=== PATIENT | male | born 1950 | race Caucasian/White ===

== ENCOUNTER 2017-07-30 22:52 | Emergency (ER) | payer OTHER ==
[~2017-07-30] VITALS: Ht 182.9 cm; Wt 93.0 kg
[~2017-07-30 22:52] MED LIST: CIP250 PO; ROX5 PO; ULT50 PO
[2017-07-30 23:09] VITALS: Ht 182.9 cm; Wt 93.0 kg
[2017-07-31 00:26] LABS: BASOPHIL % 1.6 % (0-2); PLATELET COUNT 265 x10^3mcL (130-400)
[2017-07-31 00:31] LABS: UA SPECIFIC GRAVITY <=1.005 (1.005-1.035); microscopic required? YES; urine erythrocyte 1+ (NEGATIVE)
[2017-07-31 00:38] LABS: CALCIUM 8.6 mg/dL (8.5-10.1); CARBON DIOXIDE 25.6 mmol/L (21-32); CHLORIDE SERUM 104 mmol/L (98-107); GFR1 > 60 mL/min; GLUCOSE SERUM 103 mg/dL (74-106); POTASSIUM SERUM 3.9 mmol/L (3.5-5.1); SODIUM SERUM 137 mmol/L (136-145)
[2017-07-31 00:39] LABS: RED CELL DISTRIBUTION WIDTH 14.6 % (11.5-14.5)
[2017-07-31 00:43] LABS: ALBUMIN 3.3 g/dL (3.4-5.0); ALKALINE PHOSPHATASE 79 U/L (46-116); ALT/SGPT 14 U/L (16-63); AST/SGOT 14 U/L (15-37); BILIRUBIN TOTAL 0.3 mg/dL (0.20-1.00); TOTAL PROTEIN, SERUM 6.7 g/dL (6.4-8.2)
[2017-07-31 04:02] VITALS: BP 121/77
== END 2017-07-31 04:02 | disposition home or self-care (01) ==
LOC: ED 22:52
PROVIDERS: Emergency Medicine
DX: K59.00 Constipation, unspecified (principal); Z88.0 Allergy status to penicillin
CPT/HCPCS: 36415; Q0092

== ENCOUNTER 2018-09-16 22:11 | Emergency (ER) | payer OTHER ==
[~2018-09-16] VITALS: Ht 182.9 cm; Wt 95.7 kg
[2018-09-16 22:18] VITALS: Ht 182.9 cm; Wt 95.7 kg
[2018-09-16 23:00] LABS: BASOPHIL % 1.6 % (0-2); PLATELET COUNT 227 x10^3mcL (130-400); RED CELL DISTRIBUTION WIDTH 13.8 % (11.5-14.5)
[2018-09-16 23:12] LABS: CARBON DIOXIDE 29.3 mmol/L (21-32); CREATININE SERUM 1.3 mg/dL (0.7-1.3); POTASSIUM SERUM 4.1 mmol/L (3.5-5.1)
[2018-09-16 23:16] LABS: BILIRUBIN TOTAL 0.3 mg/dL (0.20-1.00)
[2018-09-16 23:17] LABS: ALBUMIN 3.2 g/dL (3.4-5.0)
[2018-09-17 01:11] VITALS: BP 117/82
== END 2018-09-17 01:11 | disposition home or self-care (01) ==
LOC: ED 22:11
PROVIDERS: Emergency Medicine
DX: C64.1 Malignant neoplasm of right kidney, except renal pelvis (principal); Z88.0 Allergy status to penicillin
CPT/HCPCS: 36415

== ENCOUNTER 2018-10-31 23:59 | Emergency (ER) | payer OTHER ==
[~2018-10-31] VITALS: Ht 182.9 cm; Wt 95.3 kg
[2018-11-01 00:56] LABS: BASOPHIL % 0.6 % (0-2); PLATELET COUNT 226 x10^3mcL (130-400); RED CELL DISTRIBUTION WIDTH 14.8 % (11.5-14.5)
[2018-11-01 01:01] LABS: CALCIUM 8.2 mg/dL (8.5-10.1); CARBON DIOXIDE 23.2 mmol/L (21-32); CHLORIDE SERUM 107 mmol/L (98-107); CREATININE SERUM 1.2 mg/dL (0.7-1.3); GFR1 > 60 mL/min; GLUCOSE SERUM 102 mg/dL (74-106); SODIUM SERUM 141 mmol/L (136-145)
[2018-11-01 01:08] LABS: ALKALINE PHOSPHATASE 71 U/L (46-116); ALT/SGPT 14 U/L (16-63); AST/SGOT 8 U/L (15-37); BILIRUBIN TOTAL 0.28 mg/dL (0.20-1.00); TOTAL PROTEIN, SERUM 6.5 g/dL (6.4-8.2)
[2018-11-01 01:09] LABS: ALBUMIN 3.2 g/dL (3.4-5.0)
[2018-11-01 02:54] LABS: microscopic required? NO
[2018-11-01 03:10] LABS: UA SPECIFIC GRAVITY 1.015 (1.005-1.035); urine erythrocyte NEGATIVE (NEGATIVE)
[2018-11-01 04:23] VITALS: BP 114/58
== END 2018-11-01 04:23 | disposition home or self-care (01) ==
LOC: ED 23:59
PROVIDERS: Emergency Medicine
DX: L03.311 Cellulitis of abdominal wall (principal); Z88.0 Allergy status to penicillin; Z98.890 Other specified postprocedural states
CPT/HCPCS: J2270; J2405; J3490; J7030; Q9967

== ENCOUNTER 2018-11-11 10:26 | Emergency (ER) | payer OTHER ==
[~2018-11-11] VITALS: Ht 185.4 cm; Wt 95.3 kg
[2018-11-11 10:46] VITALS: BP 144/87; Ht 185.4 cm; Wt 95.3 kg
== END 2018-11-11 12:14 | disposition left against medical advice (07) ==
LOC: ED 10:26
DX: R23.2 Flushing (principal); T40.601A Poisoning by unspecified narcotics, accidental (unintentional), initial encounter; C95.90 Leukemia, unspecified not having achieved remission; Z85.528 Personal history of other malignant neoplasm of kidney; Z88.0 Allergy status to penicillin; Y92.89 Other specified places as the place of occurrence of the external cause
CPT/HCPCS: G0480